=== PATIENT | male | born 1970 | race Hispanic/Latino ===

== ENCOUNTER 2020-05-06 21:34 | Inpatient (IN) | payer SELFPAY ==
[2020-05-06 23:02] LABS: ALT (SGPT) 182 U/L (8-55); AST (SGOT) 161 U/L (5-34); Alkaline Phosphatase 383 U/L (40-110); Anion Gap 19 mmol/L (10-20); BUN (Urea Nitrogen) 10 mg/dL (8.4-25.7); Bilirubin, Total 2.8 mg/dL (0.2-1.2); Calc. Creatinine Clearance 0 mL/min (70-130); Calcium 9.5 mg/dL (7.8-10.44); Carbon Dioxide 21 mmol/L (22-29); Chloride 103 mmol/L (98-107); Globulin 4.1 g/dL (2.4-3.5); Glucose 97 mg/dL (70-105); Lipase 76 U/L (8-78); Potassium 4.1 mmol/L (3.5-5.1); Protein, Total 8.1 g/dL (6.0-8.3); Sodium 139 mmol/L (136-145)
[2020-05-06 23:08] LABS: #Basophils 0.1 thou/uL (0.0-0.2); #Eosinphils 0.3 thou/uL (0.0-0.7); #Lymphocytes 1.8 thou/uL (1.20-3.40); #Neutrophils 8.2 thou/uL (1.40-6.50); %Basophils 0.6 % (0.0-1.0); %Eosinophils 2.3 % (0.0-10.0); %Lymphocytes 15.6 % (21.0-51.0); %Monocytes 8.8 % (0.0-10.0); %Neutrophils 72.7 % (42.0-75.0); Hemoglobin 12.8 g/dL (14.0-18.0); Mean Corpuscular Hemoglobin 31.4 pg (27.0-31.0); Mean Corpuscular Volume 95.2 fL (78.0-98.0); Mean Platelet Volume 8.4 fL (7.4-10.4); Platelet Count 259 thou/uL (130-400); RBC Distribution Width 11.6 % (11.5-14.5); Red Blood Cell (RBC) Count 4.07 mill/uL (4.70-6.10); White Blood Cell (WBC) Count 11.2 thou/uL (4.8-10.8)
[2020-05-06] MEDS ORDERED: Ondansetron PF 4 MG/2 ML Vial IVP PRN (23:45)
[2020-05-06] MEDS ORDERED: Ondansetron ODT 4 MG TAB SL PRN (23:45)
[2020-05-07] MEDS: Sodium Chloride 0.9% 1,000 ML IV SCH ×2 (00:06→06:48)
[2020-05-07 00:07] VITALS: BMI 33.9
[2020-05-07] MEDS: Morphine 4 MG/ML VIAL SLOW IVP PRN ×2 (00:14→07:32)
[2020-05-07] MEDS: Piperacillin/Tazobactam 3.375 GM in Sodium Chloride 0.9% 100 ML IVPB SCH ×3 (02:15→17:38)
[2020-05-07 07:04] LABS: SARS-CoV-2 PCR by NAA Not Detected (NotDetected)
[2020-05-07] MEDS ORDERED: Lidocaine 1% PF 5 ML VIAL ONE (08:58)
[2020-05-07] MEDS ORDERED: Ondansetron PF 4 MG/2 ML Vial ONE (08:58)
[2020-05-07] MEDS ORDERED: Dexamethasone 20 MG/5 ML VIAL ONE (08:58)
[2020-05-07] MEDS ORDERED: PHENYLEPHRINE-NS 100 MCG/ML 10 ML SYRINGE ONE (08:58)
[2020-05-07] MEDS ORDERED: Rocuronium Bromide 10 MG/ML (10ML VIAL) ONE (08:58)
[2020-05-07] MEDS ORDERED: PROPOFOL 200 MG/20 ML VIAL ONE (08:58)
[2020-05-07 09:10] LABS: ALT (SGPT) 167 U/L (8-55); AST (SGOT) 125 U/L (5-34); Albumin 3.6 g/dL (3.5-5.0); Alkaline Phosphatase 375 U/L (40-110); Bilirubin, Direct 4.3 mg/dL (0.1-0.3); Bilirubin, Total 5.4 mg/dL (0.2-1.2); Protein, Total 7.4 g/dL (6.0-8.3)
[2020-05-07] MEDS ORDERED: Bupivacaine 0.25% HCL 30 ML VIAL ONE ×2 (11:04→13:53)
[2020-05-07] MEDS ORDERED: Lidocaine 1% w/Epinephrine 1:100K 20 ML VIAL ONE ×2 (11:04→13:53)
[2020-05-07] MEDS ORDERED: Iothalamate Meglumine 60% 50 ML VIAL FS ONE ×2 (11:04→13:53)
[2020-05-07] MEDS ORDERED: SUGAMMADEX SODIUM 500 MG/5 ML VIAL ONE (11:13)
[2020-05-07] MEDS ORDERED: Fentanyl 100 MCG/2 ML VIAL ONE ×3 (11:13→16:10)
[2020-05-07] MEDS ORDERED: Piperacillin/Tazobactam 3.375 GM VIAL ONE (13:13)
[2020-05-07] MEDS ORDERED: Sodium Chloride 0.9% 100 ML ONE (13:14)
[2020-05-07] MEDS ORDERED: Promethazine HCl 25 MG/ML VIAL IM PRN ×2 (16:04→17:15)
[2020-05-07] MEDS ORDERED: HYDROmorphone 2 MG/ML VIAL SLOW IVP PRN (16:04)
[2020-05-07] MEDS ORDERED: Ondansetron HCl/PF 4 MG/2 ML Vial IVP PRN (16:04)
[2020-05-07] MEDS ORDERED: Morphine Sulfate 2 MG/ML SYRINGE SLOW IVP PRN (16:04)
[2020-05-07] MEDS ORDERED: Promethazine HCl 25 MG/ML VIAL SLOW IVP PRN (16:04)
[2020-05-07] MEDS ORDERED: Ketorolac Tromethamine 30 MG/ML VIAL ONE (16:32)
[2020-05-07] MEDS ORDERED: Dextrose 50% Abboject 50 ML SYRINGE SLOW IVP PRN (17:15)
[2020-05-07] MEDS ORDERED: Ondansetron PF 4 MG/2 ML Vial IVP PRN (17:15)
[2020-05-07] MEDS ORDERED: Mag-Al 1200 mg/1200 mg/30 ML UDCUP PO PRN (17:15)
[2020-05-07] MEDS ORDERED: HYDROcodone/Acetaminophen 10/325 mg Tablet PO PRN (17:15)
[2020-05-07] MEDS ORDERED: Morphine 4 MG/ML VIAL SLOW IVP PRN (17:15)
[2020-05-07] MEDS ORDERED: Calcium Carbonate 500 MG ChewTAB PO PRN (17:15)
[2020-05-07] MEDS ORDERED: Dextrose 5% in Water 1,000 ML IV PRN (17:15)
[2020-05-07] MEDS ORDERED: Morphine 2 MG/ML VIAL SLOW IVP PRN (17:15)
[2020-05-07] MEDS ORDERED: hydrALAZINE 20 MG/ML VIAL SLOW IVP PRN (17:15)
[2020-05-07] MEDS: Ketorolac Tromethamine 30 MG/ML VIAL IVP SCH (17:32)
[2020-05-07] MEDS: D5 1/2 NS w/20 mEq KCL 1,000 ML IV SCH (17:38)
[2020-05-07] MEDS: Famotidine 20 MG TAB PO SCH (20:12)
[2020-05-07] MEDS: Famotidine/PF 20 mg/2ml Vial SLOW IVP SCH (20:15)
[2020-05-07] MEDS ORDERED: FLU VACC QS2020-21(6MOS UP)/PF 60 MCG/0.5 ML SYRINGE IM ONE (21:00)
[2020-05-08] MEDS: Ketorolac Tromethamine 30 MG/ML VIAL IVP SCH ×4 (00:03→17:19)
[2020-05-08] MEDS: Piperacillin/Tazobactam 3.375 GM in Sodium Chloride 0.9% 100 ML IVPB SCH ×4 (00:03→17:16)
[2020-05-08] MEDS: D5 1/2 NS w/20 mEq KCL 1,000 ML IV SCH ×3 (03:11→17:18)
[2020-05-08 05:28] LABS: #Lymphocytes 1.1 thou/uL (1.20-3.40); #Monocytes 1.1 thou/uL (0.11-0.59); #Neutrophils 9.5 thou/uL (1.40-6.50); %Basophils 0.2 % (0.0-1.0); %Eosinophils 0.2 % (0.0-10.0); %Lymphocytes 9.4 % (21.0-51.0); %Monocytes 9.6 % (0.0-10.0); %Neutrophils 80.7 % (42.0-75.0); Mean Corpuscular HGB CONC 32.6 g/dL (32.0-36.0); Mean Corpuscular Hemoglobin 31.3 pg (27.0-31.0); Mean Corpuscular Volume 95.9 fL (78.0-98.0); Mean Platelet Volume 8.3 fL (7.4-10.4); Platelet Count 285 thou/uL (130-400); RBC Distribution Width 11.8 % (11.5-14.5); Red Blood Cell (RBC) Count 4.17 mill/uL (4.70-6.10); White Blood Cell (WBC) Count 11.7 thou/uL (4.8-10.8)
[2020-05-08 05:53] LABS: ALT (SGPT) 155 U/L (8-55); AST (SGOT) 101 U/L (5-34); Albumin 3.4 g/dL (3.5-5.0); Alkaline Phosphatase 305 U/L (40-110); Anion Gap 13 mmol/L (10-20); BUN (Urea Nitrogen) 9 mg/dL (8.4-25.7); Bilirubin, Total 1.2 mg/dL (0.2-1.2); Calc. Creatinine Clearance 149 mL/min (70-130); Calcium 8.8 mg/dL (7.8-10.44); Carbon Dioxide 27 mmol/L (22-29); Chloride 104 mmol/L (98-107); Globulin 3.7 g/dL (2.4-3.5); Glucose 132 mg/dL (70-105); Potassium 4.4 mmol/L (3.5-5.1); Protein, Total 7.1 g/dL (6.0-8.3); Sodium 140 mmol/L (136-145)
[2020-05-08] MEDS: Famotidine/PF 20 mg/2ml Vial SLOW IVP SCH (09:09)
[2020-05-08] MEDS: Famotidine 20 MG TAB PO SCH ×2 (09:09→21:12)
[2020-05-08] MEDS ORDERED: Fentanyl 100 MCG/2 ML VIAL ONE (09:17)
[2020-05-08] MEDS ORDERED: PROPOFOL 200 MG/20 ML VIAL ONE (09:46)
[2020-05-08] MEDS ORDERED: Dexamethasone 20 MG/5 ML VIAL ONE (09:46)
[2020-05-08] MEDS ORDERED: Ondansetron PF 4 MG/2 ML Vial ONE (09:46)
[2020-05-08] MEDS ORDERED: Glycopyrrolate 0.2 MG/ML 5 ML SYRINGE ONE (09:46)
[2020-05-08] MEDS ORDERED: Lidocaine 1% PF 5 ML VIAL ONE (09:46)
[2020-05-08] MEDS ORDERED: Rocuronium Bromide 10 MG/ML (10ML VIAL) ONE (09:46)
[2020-05-08] MEDS ORDERED: Promethazine HCl 25 MG/ML VIAL SLOW IVP PRN (10:17)
[2020-05-08] MEDS ORDERED: Ondansetron HCl/PF 4 MG/2 ML Vial IVP PRN (10:17)
[2020-05-08] MEDS ORDERED: Promethazine HCl 25 MG/ML VIAL IM PRN (10:17)
[2020-05-08] MEDS ORDERED: Morphine Sulfate 2 MG/ML SYRINGE SLOW IVP PRN (10:17)
[2020-05-08] MEDS ORDERED: Indomethacin 50 MG SUPP ONE (10:25)
[2020-05-08] MEDS ORDERED: Iothalamate Meglumine 60% 50 ML VIAL FS ONE (10:26)
[2020-05-08] MEDS ORDERED: Piperacillin/Tazobactam 3.375 GM VIAL ONE (17:13)
[2020-05-09] MEDS: Famotidine/PF 20 mg/2ml Vial SLOW IVP SCH ×2 (00:42→08:52)
[2020-05-09] MEDS: Ketorolac Tromethamine 30 MG/ML VIAL IVP SCH ×2 (00:52→06:27)
[2020-05-09] MEDS: Piperacillin/Tazobactam 3.375 GM in Sodium Chloride 0.9% 100 ML IVPB SCH ×2 (00:52→06:27)
[2020-05-09] MEDS: D5 1/2 NS w/20 mEq KCL 1,000 ML IV SCH ×2 (04:02→11:50)
[2020-05-09] MEDS ORDERED: FLU VACC QS2020-21(6MOS UP)/PF 60 MCG/0.5 ML SYRINGE IM ONE (09:00)
[2020-05-09] MEDS: Famotidine 20 MG TAB PO SCH (09:09)
[2020-05-09 11:08] VITALS: BP 115/81; TEMP 97.9
== END 2020-05-09 12:36 | disposition home or self-care (01) | DRG 419 ==
LOC: ERS 21:34 → SJJU 22:06 → OBSVTOIN 22:06
PROVIDERS: ADMIT Surgery; ATTEND Surgery
PROC: 0FT44ZZ Resection of Gallbladder, Percutaneous Endoscopic Approach (ICD-10-PCS; principal; 2020-05-07)
PROC: 0FC98ZZ Extirpation of Matter from Common Bile Duct, Via Natural or Artificial Opening Endoscopic (ICD-10-PCS; 2020-05-08)
PROC: BF001ZZ Plain Radiography of Bile Ducts using Low Osmolar Contrast (ICD-10-PCS; 2020-05-08)
DX: K80.42 Calculus of bile duct with acute cholecystitis without obstruction (principal); Z20.822 Contact with and (suspected) exposure to COVID-19; E78.5 Hyperlipidemia, unspecified
CPT/HCPCS: 36415; 47532; 74330; 76705; 80053; 80076; 83605; 83690; 85025; 87635; 88304; 93005; 96365; 96366; 96375; 96376; G0378; J1100; J1610; J1885; J2270; J2405; J2543; J2704; J3010; J3480; J3490; S0020; U0003; U0005

== ENCOUNTER 2022-04-09 20:17 | Inpatient (IN) | payer OTHER, SELFPAY ==
[2022-04-09 22:24] LABS: #Basophils 0.1 thou/uL (0.0-0.2); #Eosinphils 0.2 thou/uL (0.0-0.7); #Lymphocytes 2.3 thou/uL (1.20-3.40); #Monocytes 0.6 thou/uL (0.11-0.59); #Neutrophils 4.6 thou/uL (1.40-6.50); %Basophils 1.4 % (0.0-1.0); %Eosinophils 2.8 % (0.0-10.0); %Lymphocytes 29.5 % (21.0-51.0); %Monocytes 7.7 % (0.0-10.0); %Neutrophils 58.6 % (42.0-75.0); Hemoglobin 16.6 g/dL (14.0-18.0); Mean Corpuscular HGB CONC 34.8 g/dL (32.0-36.0); Mean Corpuscular Hemoglobin 32.4 pg (27.0-31.0); Mean Corpuscular Volume 92.9 fl (78.0-98.0); Mean Platelet Volume 8.3 fL (7.4-10.4); Platelet Count 242 10x3/uL (130-400); RBC Distribution Width 11.5 % (11.5-14.5); Red Blood Cell (RBC) Count 5.12 mill/uL (4.70-6.10); White Blood Cell (WBC) Count 7.8 10x3/uL (4.8-10.8)
[2022-04-09 22:31] LABS: INR-International Normal Ratio 0.9; PTT 24.6 sec (22.9-36.1); Prothrombin Time 12.8 sec (12.0-14.7)
[2022-04-09] MEDS ORDERED: Ipratropium/Albuterol 3 ML NEB NEB PRN (22:33)
[2022-04-09] MEDS ORDERED: Morphine 2 MG/ML VIAL SLOW IVP PRN (22:33)
[2022-04-09] MEDS ORDERED: Ondansetron PF 4 MG/2 ML Vial IVP PRN (22:33)
[2022-04-09 22:46] LABS: ALT (SGPT) 15 U/L (8-55); AST (SGOT) 20 U/L (5-34); Albumin 4.6 g/dL (3.5-5.0); Alkaline Phosphatase 71 U/L (40-110); Anion Gap 13 mmol/L (10-20); BUN (Urea Nitrogen) 6 mg/dL (8.4-25.7); Bilirubin, Total 0.2 mg/dL (0.2-1.2); Calc. Creatinine Clearance 0 mL/min (70-130); Carbon Dioxide 23 mmol/L (22-29); Chloride 105 mmol/L (98-107); Estimated GFR 110; Glucose 109 mg/dL (70-105); Potassium 4.3 mmol/L (3.5-5.1); Protein, Total 8.6 g/dL (6.0-8.3); Sodium 137 mmol/L (136-145)
[2022-04-10] MEDS: Acetaminophen 325 MG TAB PO SCH ×3 (01:09→12:05)
[2022-04-10] MEDS: Sodium Chloride 0.9% 1,000 ML IV SCH ×3 (01:33→10:29)
[2022-04-10 01:37] VITALS: BMI 37.3
[2022-04-10 06:01] LABS: PTT 25.5 sec (22.9-36.1); Prothrombin Time 13.3 sec (12.0-14.7)
[2022-04-10 06:04] LABS: #Basophils 0.1 thou/uL (0.0-0.2); #Eosinphils 0.3 thou/uL (0.0-0.7); #Monocytes 0.7 thou/uL (0.11-0.59); %Basophils 1.4 % (0.0-1.0); %Eosinophils 3.9 % (0.0-10.0); %Monocytes 8.1 % (0.0-10.0); %Neutrophils 49.6 % (42.0-75.0); Hemoglobin 15.2 g/dL (14.0-18.0); Mean Corpuscular HGB CONC 34.7 g/dL (32.0-36.0); Mean Corpuscular Hemoglobin 32.1 pg (27.0-31.0); Mean Corpuscular Volume 92.7 fl (78.0-98.0); Mean Platelet Volume 8.9 fL (7.4-10.4); Platelet Count 222 10x3/uL (130-400); RBC Distribution Width 11.6 % (11.5-14.5); Red Blood Cell (RBC) Count 4.72 mill/uL (4.70-6.10); White Blood Cell (WBC) Count 8.1 10x3/uL (4.8-10.8)
[2022-04-10 06:07] LABS: Anion Gap 12 mmol/L (10-20); BUN (Urea Nitrogen) 6 mg/dL (8.4-25.7); Calc. Creatinine Clearance 179 mL/min (70-130); Calcium 8.5 mg/dL (7.8-10.44); Carbon Dioxide 24 mmol/L (22-29); Chloride 106 mmol/L (98-107); Estimated GFR 110; Glucose 98 mg/dL (70-105); Potassium 3.9 mmol/L (3.5-5.1); Sodium 138 mmol/L (136-145)
[2022-04-10] MEDS ORDERED: Famotidine/PF 20 mg/2ml Vial SLOW IVP SCH (09:00)
[2022-04-10 12:31] VITALS: BP 139/71; TEMP 98
== END 2022-04-10 16:08 | disposition home or self-care (01) | DRG 87 ==
LOC: ERS 20:17 → ERHOLD 22:52 → SJJU 04-10 02:13
PROVIDERS: ADMIT Surgery; ATTEND Surgery
PROC: HZ2ZZZZ Detoxification Services for Substance Abuse Treatment (ICD-10-PCS; principal; 2022-04-09)
DX: S06.5X0A Traumatic subdural hemorrhage without loss of consciousness, initial encounter (principal); F10.129 Alcohol abuse with intoxication, unspecified; Y90.8 Blood alcohol level of 240 mg/100 ml or more; X99.8XXA Assault by other sharp object, initial encounter; Y92.511 Restaurant or cafe as the place of occurrence of the external cause; Z90.49 Acquired absence of other specified parts of digestive tract
CPT/HCPCS: 36415; 70450; 80048; 80053; 80307; 85025; 85610; 85730; G0390; J7050; S0028

== ENCOUNTER 2023-05-28 13:11 | Inpatient (IN) | payer SELFPAY ==
[2023-05-28] MEDS ORDERED: Morphine 4 MG/ML VIAL ONE (13:23)
[2023-05-28] MEDS ORDERED: Ondansetron PF 4 MG/2 ML Vial ONE (13:23)
[2023-05-28] MEDS ORDERED: CEFAZOLIN 2 GM VIAL ONE (13:23)
[2023-05-28] MEDS ORDERED: Boostrix 0.5 ML (Tdap) VIAL (>/=7 yrs of age) ONE (13:24)
[2023-05-28 13:42] LABS: #Basophils 0.08 10x3/uL (0.0-0.2); %Basophils 0.7 % (0.0-1.0); %Lymphocytes 26.2 % (21.0-51.0); %Monocytes 7.5 % (0.0-10.0); %Neutrophils 62.1 % (42.0-75.0); Hematocrit 46.1 % (42.0-52.0); Hemoglobin 15.4 g/dL (14.0-18.0); Mean Corpuscular HGB CONC 33.4 g/dL (32.0-36.0); Mean Corpuscular Hemoglobin 30.9 pg (27.0-31.0); Mean Corpuscular Volume 92.6 fL (78.0-98.0); Mean Platelet Volume 10.7 fL (7.4-10.4); Platelet Count 233 10x3/uL (130-400); RBC Distribution Width 12.4 % (11.5-14.5); Red Blood Cell (RBC) Count 4.98 mill/uL (4.70-6.10)
[2023-05-28 13:54] LABS: Bacteria/HPF None Seen HPF (None Seen); Bilirubin Negative (Negative); Blood, Urine Negative (Negative); Clarity Clear (Clear); Glucose, Urine (Dipstick) Normal (Negative); Ketone, Urine Negative (Negative); Leukocyte Negative Leu/uL (Negative); Nitrite Negative (Negative); Protein, Urine (Dipstick) 20 mg/dL (Neg-Trace); RBC/HPF 0-3 HPF (0-3); Specific Gravity, Urine 1.037 (1.002-1.036); Squamous Epithelial 0-3 HPF (0-3); Urobilinogen Normal mg/dL (Less than 2); WBC/HPF 0-3 HPF (0-3); pH, Urine 5.5 (5.0-9.0)
[2023-05-28 14:01] LABS: INR-International Normal Ratio 0.9
[2023-05-28 14:05] LABS: ALT (SGPT) 13 U/L (8-55); AST (SGOT) 20 U/L (5-34); Albumin 4.3 g/dL (3.5-5.0); Alkaline Phosphatase 71 U/L (40-110); Anion Gap 14 mmol/L (10-20); BUN (Urea Nitrogen) 12 mg/dL (8.4-25.7); Bilirubin, Total 0.5 mg/dL (0.2-1.2); Calc. Creatinine Clearance 0 mL/min (70-130); Calcium 9.6 mg/dL (7.8-10.44); Carbon Dioxide 24 mmol/L (22-29); Chloride 105 mmol/L (98-107); Estimated GFR 103; Globulin 3.4 g/dL (2.4-3.5); Glucose 122 mg/dL (70-105); Potassium 4.2 mmol/L (3.5-5.1); Protein, Total 7.7 g/dL (6.0-8.3); Sodium 139 mmol/L (136-145)
[2023-05-28 14:13] LABS: PTT 21.3 sec (22.9-36.1)
[2023-05-28] MEDS ORDERED: Dextrose 5% in Water 1,000 ML IV PRN (14:21)
[2023-05-28] MEDS ORDERED: Dextrose 50% Abboject 50 ML SYRINGE SLOW IVP PRN (14:21)
[2023-05-28] MEDS ORDERED: Glucagon 1 MG/ML KIT IM PRN (14:21)
[2023-05-28] MEDS ORDERED: Ipratropium/Albuterol 3 ML NEB NEB PRN (14:21)
[2023-05-28] MEDS ORDERED: Ondansetron PF 4 MG/2 ML Vial IVP PRN (14:21)
[2023-05-28] MEDS ORDERED: traMADol HCl 50 MG TAB PO PRN (14:21)
[2023-05-28] MEDS ORDERED: Ondansetron ODT 4 MG TAB PO PRN (14:21)
[2023-05-28] MEDS ORDERED: Acetaminophen 325 MG TAB PO PRN (14:21)
[2023-05-28 16:59] LABS: Lactic Acid 1.9 mmol/L (0.5-2.2)
[2023-05-28 17:17] VITALS: BMI 32.3
[2023-05-28] MEDS: HYDROcodone/Acetaminophen 5/325 mg Tablet PO PRN (17:42)
[2023-05-28] MEDS: CEFAZOLIN 1 GM in Sodium Chloride 0.9% 100 ML IVPB SCH (21:05)
[2023-05-28] MEDS: Famotidine 20 MG TAB PO SCH (21:05)
[2023-05-28] MEDS: TETANUS, DIPHTHERIA TOX,ADULT (TDVAX) 0.5 ML VIAL IM ONE (21:06)
[2023-05-29 04:21] LABS: #Basophils 0.06 10x3/uL (0.0-0.2); %Basophils 0.6 % (0.0-1.0); %Eosinophils 1.8 % (0.0-10.0); %Monocytes 10.7 % (0.0-10.0); %Neutrophils 67.5 % (42.0-75.0); Hematocrit 43.4 % (42.0-52.0); Hemoglobin 14.8 g/dL (14.0-18.0); Mean Corpuscular HGB CONC 34.1 g/dL (32.0-36.0); Mean Corpuscular Hemoglobin 31.2 pg (27.0-31.0); Mean Corpuscular Volume 91.4 fL (78.0-98.0); Mean Platelet Volume 10.6 fL (7.4-10.4); Platelet Count 205 10x3/uL (130-400); RBC Distribution Width 12.6 % (11.5-14.5); Red Blood Cell (RBC) Count 4.75 mill/uL (4.70-6.10)
[2023-05-29 04:41] LABS: Anion Gap 13 mmol/L (10-20); BUN (Urea Nitrogen) 11 mg/dL (8.4-25.7); Calc. Creatinine Clearance 144 mL/min (70-130); Carbon Dioxide 23 mmol/L (22-29); Chloride 104 mmol/L (98-107); Estimated GFR 107; Glucose 100 mg/dL (70-105); Potassium 3.9 mmol/L (3.5-5.1); Sodium 136 mmol/L (136-145)
[2023-05-29] MEDS ORDERED: Bupivacaine PF 0.5% 30 ML VIAL ONE (08:58)
[2023-05-29] MEDS ORDERED: Rocuronium Bromide 10 MG/ML (10ML VIAL) ONE (09:10)
[2023-05-29] MEDS ORDERED: Lidocaine 2% PF 5 ML VIAL ONE (09:10)
[2023-05-29] MEDS ORDERED: fentaNYL PF 100 MCG/2 ML SYRINGE ONE (09:10)
[2023-05-29] MEDS ORDERED: Dexamethasone 20 MG/5 ML VIAL ONE (09:10)
[2023-05-29] MEDS ORDERED: Ondansetron PF 4 MG/2 ML Vial ONE (09:10)
[2023-05-29] MEDS ORDERED: PROPOFOL 20 ML ONE (09:11)
[2023-05-29] MEDS ORDERED: HYDROmorphone 0.5 MG/0.5 ML SYRINGE ONE (09:13)
[2023-05-29] MEDS ORDERED: Bacitracin Zinc Ointment 30 gm TUBE ONE (10:36)
[2023-05-29] MEDS ORDERED: Glycopyrrolate 0.2 MG/ML 5 ML SYRINGE ONE (10:59)
[2023-05-29] MEDS ORDERED: NEOSTIGMINE 3 MG/3 ML SYR 3 MG/3 ML SYRINGE ONE (10:59)
[2023-05-29] MEDS ORDERED: Ketorolac Tromethamine 30 MG (1 mL) VIAL ONE (11:06)
[2023-05-29] MEDS ORDERED: HYDROmorphone 2 MG/ML VIAL SLOW IVP PRN (11:07)
[2023-05-29] MEDS ORDERED: Ondansetron HCl/PF 4 MG/2 ML Vial IVP PRN (11:07)
[2023-05-29] MEDS ORDERED: Promethazine HCl 25 MG/ML VIAL IM PRN (11:07)
[2023-05-29] MEDS ORDERED: Cyclobenzaprine 10 MG TAB PO PRN (20:28)
[2023-05-29] MEDS: Lactulose 20 GM (30 mL) UDCUP PO SCH (22:30)
[2023-05-29] MEDS: Senokot S 8.6-50 MG TAB PO SCH (22:31)
[2023-05-30] MEDS: traMADol HCl 50 MG TAB PO SCH (00:29)
[2023-05-30] MEDS: Enoxaparin 40 MG (0.4 mL) SYRINGE SC SCH (09:00)
[2023-05-30] MEDS: Polyethylene Glycol 3350 17 GM Packet PO SCH (09:00)
[2023-05-30] MEDS: Acetaminophen 500 MG TAB PO SCH (09:26)
[2023-05-30] MEDS: Morphine 4 MG/ML VIAL SLOW IVP PRN (09:28)
[2023-06-01] MEDS ORDERED: Promethazine HCl 25 MG/ML VIAL IM PRN (12:58)
[2023-06-01] MEDS ORDERED: HYDROmorphone 2 MG/ML VIAL SLOW IVP PRN (12:58)
[2023-06-01] MEDS ORDERED: Ondansetron HCl/PF 4 MG/2 ML Vial IVP PRN (12:58)
[2023-06-01] MEDS ORDERED: Bupivacaine PF 0.5% 30 ML VIAL ONE (14:05)
[2023-06-01] MEDS ORDERED: Bacitracin Zinc Ointment 30 gm TUBE ONE (14:05)
[2023-06-01] MEDS ORDERED: CEFAZOLIN 2 GM VIAL ONE (14:18)
[2023-06-01] MEDS ORDERED: Sodium Chloride 0.9% 100 ML ONE (14:18)
[2023-06-01] MEDS ORDERED: PROPOFOL 40 ML ONE (14:19)
[2023-06-01] MEDS ORDERED: Lidocaine 1% PF 5 ML VIAL ONE (14:19)
[2023-06-01] MEDS ORDERED: fentaNYL PF 100 MCG/2 ML SYRINGE ONE (14:24)
[2023-06-01] MEDS ORDERED: fentaNYL 50 mcg/mL 1 mL Vial ONE (15:30)
[2023-06-01] MEDS ORDERED: HYDROcodone/Acetaminophen 7.5/325 mg Tablet PO PRN (16:18)
[2023-06-01] MEDS ORDERED: Morphine 4 MG/ML VIAL SLOW IVP PRN (16:19)
[2023-06-01] MEDS: Acetaminophen 325 MG TAB PO SCH (17:26)
[2023-06-02 12:32] VITALS: BP 114/79; TEMP 98
== END 2023-06-02 14:47 | disposition home or self-care (01) | DRG 501 ==
LOC: ERS 13:11 → EEVIPCON 13:11 → SURG B 16:15
PROVIDERS: ADMIT Surgery; ATTEND Surgery
PROC: 3E0234Z Introduction of Serum, Toxoid and Vaccine into Muscle, Percutaneous Approach (ICD-10-PCS; 2023-05-28)
PROC: 0KQD0ZZ Repair Left Hand Muscle, Open Approach (ICD-10-PCS; principal; 2023-05-29)
PROC: 0KQB0ZZ Repair Left Lower Arm and Wrist Muscle, Open Approach (ICD-10-PCS; 2023-05-29)
PROC: 0RBP0ZZ Excision of Left Wrist Joint, Open Approach (ICD-10-PCS; 2023-05-29)
PROC: 0PBN0ZZ Excision of Left Carpal, Open Approach (ICD-10-PCS; 2023-05-29)
PROC: 0RCP0ZZ Extirpation of Matter from Left Wrist Joint, Open Approach (ICD-10-PCS; 2023-05-29)
PROC: 0KDR0ZZ Extraction of Left Upper Leg Muscle, Open Approach (ICD-10-PCS; 2023-06-01)
PROC: 0KQB0ZZ Repair Left Lower Arm and Wrist Muscle, Open Approach (ICD-10-PCS; 2023-06-01)
DX: S62.132B Displaced fracture of capitate [os magnum] bone, left wrist, initial encounter for open fracture (principal); I96 Gangrene, not elsewhere classified; S66.323A Laceration of extensor muscle, fascia and tendon of left middle finger at wrist and hand level, initial encounter; S66.327A Laceration of extensor muscle, fascia and tendon of left little finger at wrist and hand level, initial encounter; S66.325A Laceration of extensor muscle, fascia and tendon of left ring finger at wrist and hand level, initial encounter; N43.3 Hydrocele, unspecified; S71.132A Puncture wound without foreign body, left thigh, initial encounter; Z90.49 Acquired absence of other specified parts of digestive tract; W34.00XA Accidental discharge from unspecified firearms or gun, initial encounter; Z23 Encounter for immunization
CPT/HCPCS: 36415; 71260; 72170; 74177; 75635; 80048; 80053; 81001; 83605; 85025; 85610; 85730; 86850; 86900; 86901; 90471; 90715; 93005; 96365; 96375; 97139; A6223; A6258; C1713; J0665; J0690; J1100; J1170; J1650; J1885; J2001; J2270; J2405; J2704; J3010; J3490